=== PATIENT | male | born 1980 | race African-American/Black ===

== ENCOUNTER 2018-06-09 18:02 | Observation (INO) | payer MEDICAID ==
[~2018-06-09] VITALS: Ht 177.8 cm; Wt 96.9 kg
[2018-06-09 19:08] LABS: BASOPHILS # (AUTO) 0.06 x10^3/uL (0-0.1); BASOPHILS % (AUTO) 1 % (0-1); EOSINOPHILS # (AUTO) 0.13 x10^3/uL (0-0.4); EOSINOPHILS % (AUTO) 2 % (1-7); LYMPHOCYTES # (AUTO) 1.92 x10^3/uL (1-3.4); LYMPHOCYTES % (AUTO) 26 % (22-44); MD NO; MEAN CORPUSCULAR HEMOGLOBIN 29.9 pg (27.5-34.5); MEAN PLATELET VOLUME 9.1 fL (7.4-10.4); MONOCYTES # (AUTO) 0.52 x10^3/uL (0.2-0.8); MONOCYTES % (AUTO) 7 % (2-9); NEUTROPHILS # (AUTO) 4.65 x10^3/uL (1.8-6.8); NEUTROPHILS % (AUTO) 64 % (42-75); PLATELET COUNT 258 x10^3/uL (130-400); RED BLOOD COUNT 5.15 x10^6/uL (4.38-5.82); RED CELL DISTRIBUTION WIDTH 14.3 % (9.4-14.8)
[2018-06-09 19:11] LABS: ALANINE AMINOTRANSFERASE 36 U/L (12-78); ALBUMIN 4.3 g/dL (3.4-5.0); ANION GAP 7 mmol/L (5-15); CALCIUM 9.1 mg/dL (8.5-10.1); CHLORIDE 110 mmol/L (98-107); CREATININE 1.37 mg/dL (0.7-1.3)
[2018-06-09 19:12] LABS: SALICYLATE LEVEL < 1.7 mg/dL (2.8-20.0)
[2018-06-09 19:13] LABS: ALKALINE PHOSPHATASE 84 U/L (45-117); BILIRUBIN,TOTAL 0.7 mg/dL (0.2-1.0); TOTAL PROTEIN 8.7 g/dL (6.4-8.2)
[2018-06-09 19:14] LABS: ACETAMINOPHEN < 2 mcg/mL (10-30)
[2018-06-09 19:45] LABS: AMPHETAMINE SCREEN, URINE Positive (Negative); BARBITURATE SCREEN, URINE Negative (Negative); BENZODIAZEPINE SCREEN, URINE Negative (Negative); CANNABINOID SCREEN, URINE Positive (Negative); COCAINE SCREEN, URINE Negative (Negative); METHADONE SCREEN, URINE Negative (Negative); OPIATE SCREEN, URINE Negative (Negative)
[2018-06-09 19:46] LABS: MICROSCOPIC INDICATED
[2018-06-09 20:00] LABS: CULTURE INDICATED? YES
[2018-06-10] MEDS ORDERED: ONDANSETRON 2MG/ML, 2ML IVPush PRN (15:00)
[2018-06-10 15:36] VITALS: BP 120/79
[2018-06-10] MEDS ORDERED: BUPR-86 PO (15:57)
[2018-06-10] MEDS ORDERED: RISP2TAB3 PO (15:59)
[2018-06-10] MEDS ORDERED: GABA-827 PO (15:59)
[2018-06-10 16:19] LABS: FREE T4 (FREE THYROXINE) 1.48 ng/dL (0.76-1.46); THYROID STIMULATING HORMONE 1.23 mIU/L (0.358-3.740)
[2018-06-10] MEDS: NICOTINE 21 MG/24 HR PATCH.TD24 TD SCH (16:30)
[2018-06-10 19:31] VITALS: BP 121/77
[2018-06-11 06:42] LABS: ANION GAP 4 mmol/L (5-15); CALCIUM 8.6 mg/dL (8.5-10.1); CHLORIDE 107 mmol/L (98-107)
[2018-06-11 08:12] VITALS: BP 121/76
[2018-06-11] MEDS: NICOTINE 21 MG/24 HR PATCH.TD24 TD SCH (16:37)
[2018-06-11 19:19] VITALS: BP 128/77
[2018-06-12 07:58] VITALS: BP 128/72
== END 2018-06-12 11:40 ==
LOC: ED 20:47 → SUATTDRO 06-10 14:17 → EDIP 06-10 14:19 → 2N 06-10 15:29
PROVIDERS: ADMIT Internal Medicine; ATTEND Internal Medicine
DX: R45.851 Suicidal ideations (principal); F33.1 Major depressive disorder, recurrent, moderate; F22 Delusional disorders; F17.200 Nicotine dependence, unspecified, uncomplicated; F15.90 Other stimulant use, unspecified, uncomplicated; N17.0 Acute kidney failure with tubular necrosis; Z91.14 Patient's other noncompliance with medication regimen; Z91.5 Personal history of self-harm; Z79.899 Other long term (current) drug therapy
CPT/HCPCS: 36415; 80048; 80053; 80307; 80329; 81001; 84439; 84443; 85025; 87086; 99285; G0378; G0480

== ENCOUNTER 2018-07-04 18:12 | Emergency (ER) | payer MEDICAID ==
[~2018-07-04] VITALS: Ht 177.8 cm; Wt 101.6 kg
[~2018-07-04 18:12] MED LIST: BUPR-86 PO; GABA-827 PO; RISP2TAB3 PO
[2018-07-04 18:35] VITALS: BP 140/91
[2018-07-04] MEDS ORDERED: ONDANSETRON ODT 4 MG PO ONE (19:00)
== END 2018-07-04 19:39 | disposition home or self-care (01) ==
LOC: ED 19:33
DX: Z04.8 Encounter for examination and observation for other specified reasons (principal); F17.200 Nicotine dependence, unspecified, uncomplicated; F32.9 Major depressive disorder, single episode, unspecified
CPT/HCPCS: 99281

== ENCOUNTER 2018-08-08 02:09 | Observation (INO) | payer MEDICAID ==
[~2018-08-08] VITALS: Ht 177.8 cm; Wt 98.5 kg
[2018-08-08 02:40] LABS: BASOPHILS # (AUTO) 0.03 x10^3/uL (0-0.1); BASOPHILS % (AUTO) 0 % (0-1); EOSINOPHILS # (AUTO) 0.13 x10^3/uL (0-0.4); EOSINOPHILS % (AUTO) 1 % (1-7); LYMPHOCYTES # (AUTO) 1.56 x10^3/uL (1-3.4); LYMPHOCYTES % (AUTO) 15 % (22-44); MD NO; MEAN CORPUSCULAR HEMOGLOBIN 29.6 pg (27.5-34.5); MEAN CORPUSCULAR HGB CONC 33.9 g/dL (33.2-36.2); MEAN CORPUSCULAR VOLUME 87.3 fL (81-97); MEAN PLATELET VOLUME 8.9 fL (7.4-10.4); MONOCYTES # (AUTO) 0.48 x10^3/uL (0.2-0.8); MONOCYTES % (AUTO) 5 % (2-9); NEUTROPHILS # (AUTO) 8.23 x10^3/uL (1.8-6.8); NEUTROPHILS % (AUTO) 79 % (42-75); PLATELET COUNT 281 x10^3/uL (130-400); RED CELL DISTRIBUTION WIDTH 15.1 % (9.4-14.8)
[2018-08-08 02:51] LABS: ANION GAP 11 mmol/L (5-15); CALCIUM 8.8 mg/dL (8.5-10.1); CHLORIDE 104 mmol/L (98-107)
[2018-08-08 02:55] LABS: ALANINE AMINOTRANSFERASE 59 U/L (12-78); ALKALINE PHOSPHATASE 80 U/L (45-117); BILIRUBIN,TOTAL 0.6 mg/dL (0.2-1.0); CREATININE 1.23 mg/dL (0.7-1.3); TOTAL PROTEIN 8.3 g/dL (6.4-8.2)
[2018-08-08 02:58] LABS: ACETAMINOPHEN < 2 mcg/mL (10-30)
[2018-08-08 05:44] LABS: AMPHETAMINE SCREEN, URINE Positive (Negative); BARBITURATE SCREEN, URINE Negative (Negative); BENZODIAZEPINE SCREEN, URINE Negative (Negative); CANNABINOID SCREEN, URINE Positive (Negative); COCAINE SCREEN, URINE Negative (Negative); METHADONE SCREEN, URINE Negative (Negative); OPIATE SCREEN, URINE Negative (Negative)
[2018-08-08] MEDS ORDERED: BISACODYL 10 MG SUPP PR PRN (12:30)
[2018-08-08] MEDS ORDERED: POLYETHYLENE GLYCOL 17 GM PACKET PO PRN (12:30)
[2018-08-08] MEDS ORDERED: DOCUSATE 100 MG CAPSULE PO PRN (12:30)
[2018-08-08] MEDS ORDERED: ONDANSETRON ODT 4 MG PO PRN (12:30)
[2018-08-08] MEDS: INSULIN REGULAR 100 UNITS/ML, 3ML VIAL SQ-INSULIN SCH ×2 (13:30→20:34)
[2018-08-08] MEDS: GABAPENTIN 400 MG CAPSULE PO SCH ×2 (17:25→20:08)
[2018-08-08 19:55] VITALS: BP 114/77
[2018-08-08] MEDS: RISPERIDONE 2 MG TABLET PO SCH (20:08)
[2018-08-09] MEDS: INSULIN REGULAR 100 UNITS/ML, 3ML VIAL SQ-INSULIN SCH ×2 (07:00→11:00)
[2018-08-09 08:13] VITALS: BP 109/74
[2018-08-09] MEDS: GABAPENTIN 400 MG CAPSULE PO SCH ×3 (08:13→19:42)
[2018-08-09] MEDS: BUPROPION SR 150 MG TABLET PO SCH (08:13)
[2018-08-09] MEDS: LORazepam 1MG TABLET PO PRN (19:42)
[2018-08-09] MEDS: RISPERIDONE 2 MG TABLET PO SCH (19:42)
[2018-08-09 19:57] VITALS: BP 118/72
[2018-08-10 08:22] VITALS: BP_SYST 118
[2018-08-10] MEDS: BUPROPION SR 150 MG TABLET PO SCH (09:07)
[2018-08-10] MEDS: GABAPENTIN 400 MG CAPSULE PO SCH ×3 (09:07→20:20)
[2018-08-10 11:44] LABS: CHLORIDE 108 mmol/L (98-107)
[2018-08-10 11:45] LABS: ALBUMIN 3.1 g/dL (3.4-5.0); ANION GAP 5 mmol/L (5-15); CALCIUM 8.6 mg/dL (8.5-10.1)
[2018-08-10 11:46] LABS: CREATININE 0.89 mg/dL (0.7-1.3)
[2018-08-10 12:23] LABS: MEAN CORPUSCULAR HEMOGLOBIN 29.6 pg (27.5-34.5); MEAN CORPUSCULAR HGB CONC 33.5 g/dL (33.2-36.2); MEAN CORPUSCULAR VOLUME 88.3 fL (81-97); MEAN PLATELET VOLUME 8.8 fL (7.4-10.4); PLATELET COUNT 232 x10^3/uL (130-400); RED CELL DISTRIBUTION WIDTH 14.9 % (9.4-14.8)
[2018-08-10 12:25] LABS: BASOPHILS # (AUTO) 0.01 x10^3/uL (0-0.1); BASOPHILS % (AUTO) 0 % (0-1); EOSINOPHILS # (AUTO) 0.07 x10^3/uL (0-0.4); EOSINOPHILS % (AUTO) 2 % (1-7); LYMPHOCYTES # (AUTO) 0.86 x10^3/uL (1-3.4); LYMPHOCYTES % (AUTO) 22 % (22-44); MD SCAN; MONOCYTES # (AUTO) 0.35 x10^3/uL (0.2-0.8); MONOCYTES % (AUTO) 9 % (2-9); NEUTROPHILS # (AUTO) 2.55 x10^3/uL (1.8-6.8); NEUTROPHILS % (AUTO) 67 % (42-75)
[2018-08-10] MEDS: LORazepam 1MG TABLET PO PRN ×2 (15:40→20:21)
[2018-08-10] MEDS: ACETAMINOPHEN 325 MG TABLET PO PRN (17:37)
[2018-08-10 19:16] VITALS: BP 113/69
[2018-08-10] MEDS: RISPERIDONE 2 MG TABLET PO SCH (20:21)
[2018-08-11 08:40] VITALS: BP 122/64
[2018-08-11] MEDS: BUPROPION SR 150 MG TABLET PO SCH (09:03)
[2018-08-11] MEDS: GABAPENTIN 400 MG CAPSULE PO SCH ×3 (09:03→20:21)
[2018-08-11] MEDS: LORazepam 1MG TABLET PO PRN (18:23)
[2018-08-11 19:24] VITALS: BP 121/75
[2018-08-11] MEDS: RISPERIDONE 2 MG TABLET PO SCH (20:22)
[2018-08-12 07:30] VITALS: BP 107/72
[2018-08-12] MEDS: GABAPENTIN 400 MG CAPSULE PO SCH ×3 (08:43→20:22)
[2018-08-12] MEDS: BUPROPION SR 150 MG TABLET PO SCH (08:43)
[2018-08-12] MEDS: ACETAMINOPHEN 325 MG TABLET PO PRN (16:12)
[2018-08-12 19:10] VITALS: BP 123/78
[2018-08-12] MEDS: LORazepam 1MG TABLET PO PRN (19:28)
[2018-08-12] MEDS: RISPERIDONE 2 MG TABLET PO SCH (20:22)
[2018-08-13 08:16] VITALS: BP 106/76
[2018-08-13] MEDS: BUPROPION SR 150 MG TABLET PO SCH (09:11)
[2018-08-13] MEDS: GABAPENTIN 400 MG CAPSULE PO SCH ×3 (09:11→20:08)
[2018-08-13] MEDS: LORazepam 1MG TABLET PO PRN ×2 (15:48→20:08)
[2018-08-13] MEDS: ACETAMINOPHEN 325 MG TABLET PO PRN (15:49)
[2018-08-13 19:56] VITALS: BP 119/78
[2018-08-13] MEDS: RISPERIDONE 2 MG TABLET PO SCH (20:08)
[2018-08-14 07:54] VITALS: BP 108/69
[2018-08-14] MEDS: GABAPENTIN 400 MG CAPSULE PO SCH ×3 (07:59→20:44)
[2018-08-14] MEDS: BUPROPION SR 150 MG TABLET PO SCH (07:59)
[2018-08-14] MEDS: LORazepam 1MG TABLET PO PRN ×2 (07:59→13:04)
[2018-08-14 19:47] VITALS: BP 117/75
[2018-08-14] MEDS: RISPERIDONE 2 MG TABLET PO SCH (20:44)
[2018-08-15 07:38] VITALS: BP 101/66
[2018-08-15] MEDS: BUPROPION SR 150 MG TABLET PO SCH (09:16)
[2018-08-15] MEDS: GABAPENTIN 400 MG CAPSULE PO SCH ×3 (09:16→20:29)
[2018-08-15] MEDS: LORazepam 1MG TABLET PO PRN (18:38)
[2018-08-15 19:39] VITALS: BP 123/77
[2018-08-15] MEDS: RISPERIDONE 2 MG TABLET PO SCH (20:29)
[2018-08-16 08:13] VITALS: BP 112/72
[2018-08-16] MEDS: LORazepam 1MG TABLET PO PRN (08:55)
[2018-08-16] MEDS: GABAPENTIN 400 MG CAPSULE PO SCH ×3 (08:55→20:46)
[2018-08-16] MEDS: BUPROPION SR 150 MG TABLET PO SCH (08:55)
[2018-08-16 19:40] VITALS: BP 117/77
[2018-08-16] MEDS: RISPERIDONE 2 MG TABLET PO SCH (20:47)
[2018-08-17 07:55] VITALS: BP 107/74
[2018-08-17] MEDS: BUPROPION SR 150 MG TABLET PO SCH (08:48)
[2018-08-17] MEDS: GABAPENTIN 400 MG CAPSULE PO SCH (08:48)
== END 2018-08-17 10:50 | disposition home or self-care (01) ==
LOC: ED 03:00 → EDIP 10:39 → 2N 14:21
PROVIDERS: ADMIT Hospitalist; ATTEND Hospitalist
DX: R45.851 Suicidal ideations (principal); D72.829 Elevated white blood cell count, unspecified; R79.89 Other specified abnormal findings of blood chemistry; F31.9 Bipolar disorder, unspecified; F20.9 Schizophrenia, unspecified; F43.10 Post-traumatic stress disorder, unspecified; F12.90 Cannabis use, unspecified, uncomplicated; F17.210 Nicotine dependence, cigarettes, uncomplicated; Z91.5 Personal history of self-harm
CPT/HCPCS: 36415; 80048; 80053; 80307; 80329; 82040; 82962; 85025; 99285; G0378; J1815; G0480

== ENCOUNTER 2018-08-19 21:41 | Emergency (ER) | payer MEDICAID ==
[~2018-08-19] VITALS: Ht 172.7 cm; Wt 99.8 kg
[2018-08-19 22:01] VITALS: BP 130/75
[2018-08-19 22:30] LABS: BASOPHILS # (AUTO) 0.04 x10^3/uL (0-0.1); BASOPHILS % (AUTO) 0 % (0-1); EOSINOPHILS % (AUTO) 1 % (1-7); LYMPHOCYTES # (AUTO) 1.32 x10^3/uL (1-3.4); LYMPHOCYTES % (AUTO) 14 % (22-44); MD NO; MEAN CORPUSCULAR HEMOGLOBIN 29.2 pg (27.5-34.5); MEAN CORPUSCULAR HGB CONC 33.3 g/dL (33.2-36.2); MEAN CORPUSCULAR VOLUME 87.6 fL (81-97); MEAN PLATELET VOLUME 8.4 fL (7.4-10.4); MONOCYTES # (AUTO) 0.85 x10^3/uL (0.2-0.8); MONOCYTES % (AUTO) 9 % (2-9); NEUTROPHILS # (AUTO) 7.44 x10^3/uL (1.8-6.8); NEUTROPHILS % (AUTO) 76 % (42-75); PLATELET COUNT 255 x10^3/uL (130-400); RED BLOOD COUNT 4.91 x10^6/uL (4.38-5.82); RED CELL DISTRIBUTION WIDTH 15.2 % (9.4-14.8)
[2018-08-19 22:39] LABS: AMPHETAMINE SCREEN, URINE Positive (Negative); BARBITURATE SCREEN, URINE Negative (Negative); BENZODIAZEPINE SCREEN, URINE Negative (Negative); CANNABINOID SCREEN, URINE Positive (Negative); COCAINE SCREEN, URINE Negative (Negative); METHADONE SCREEN, URINE Negative (Negative); OPIATE SCREEN, URINE Negative (Negative)
[2018-08-19 22:42] LABS: ALANINE AMINOTRANSFERASE 58 U/L (12-78); ALBUMIN 3.9 g/dL (3.4-5.0); ANION GAP 11 mmol/L (5-15); CALCIUM 9.2 mg/dL (8.5-10.1); CHLORIDE 104 mmol/L (98-107); SALICYLATE LEVEL 2.4 mg/dL (2.8-20.0)
[2018-08-19 22:45] LABS: ACETAMINOPHEN < 2 mcg/mL (10-30); ALKALINE PHOSPHATASE 77 U/L (45-117); BILIRUBIN,TOTAL 0.8 mg/dL (0.2-1.0); CREATININE 1.22 mg/dL (0.7-1.3); TOTAL PROTEIN 8.4 g/dL (6.4-8.2)
== END 2018-08-19 23:34 | disposition home or self-care (01) ==
LOC: ED 23:28
DX: F32.1 Major depressive disorder, single episode, moderate (principal); F10.129 Alcohol abuse with intoxication, unspecified; F15.129 Other stimulant abuse with intoxication, unspecified; F20.9 Schizophrenia, unspecified
CPT/HCPCS: 36415; 80053; 80307; 80329; 85025; 99284; G0480

== ENCOUNTER 2018-10-17 08:25 | Observation (INO) | payer MEDICAID ==
[~2018-10-17] VITALS: Ht 177.8 cm; Wt 95.0 kg
[2018-10-17 09:55] LABS: ALANINE AMINOTRANSFERASE 33 U/L (12-78); ALBUMIN 3.1 g/dL (3.4-5.0); ANION GAP 7 mmol/L (5-15); CALCIUM 8.5 mg/dL (8.5-10.1); CHLORIDE 109 mmol/L (98-107); CREATININE 1.11 mg/dL (0.7-1.3)
[2018-10-17 09:57] LABS: ALKALINE PHOSPHATASE 75 U/L (45-117); BILIRUBIN,TOTAL 0.3 mg/dL (0.2-1.0); SALICYLATE LEVEL < 1.7 mg/dL (2.8-20.0); TOTAL PROTEIN 7.2 g/dL (6.4-8.2)
[2018-10-17 10:00] LABS: BASOPHILS % (AUTO) 0 % (0-1); EOSINOPHILS # (AUTO) 0.23 x10^3/uL (0-0.4); EOSINOPHILS % (AUTO) 4 % (1-7); LYMPHOCYTES # (AUTO) 0.87 x10^3/uL (1-3.4); LYMPHOCYTES % (AUTO) 14 % (22-44); MD NO; MEAN CORPUSCULAR HEMOGLOBIN 29.2 pg (27.5-34.5); MEAN CORPUSCULAR HGB CONC 33.2 g/dL (33.2-36.2); MEAN PLATELET VOLUME 9.2 fL (7.4-10.4); MONOCYTES # (AUTO) 0.23 x10^3/uL (0.2-0.8); MONOCYTES % (AUTO) 4 % (2-9); NEUTROPHILS # (AUTO) 4.68 x10^3/uL (1.8-6.8); NEUTROPHILS % (AUTO) 78 % (42-75); PLATELET COUNT 278 x10^3/uL (130-400); RED BLOOD COUNT 4.65 x10^6/uL (4.38-5.82); RED CELL DISTRIBUTION WIDTH 14.4 % (9.4-14.8)
[2018-10-17 10:01] LABS: ACETAMINOPHEN < 2 mcg/mL (10-30)
[2018-10-17 10:33] LABS: AMPHETAMINE SCREEN, URINE Positive (Negative); BARBITURATE SCREEN, URINE Negative (Negative); BENZODIAZEPINE SCREEN, URINE Negative (Negative); CANNABINOID SCREEN, URINE Positive (Negative); COCAINE SCREEN, URINE Negative (Negative); METHADONE SCREEN, URINE Negative (Negative); OPIATE SCREEN, URINE Negative (Negative)
[2018-10-17] MEDS ORDERED: ACETAMINOPHEN 325 MG TABLET PO PRN (17:00)
[2018-10-17] MEDS ORDERED: LORazepam 1MG TABLET PO PRN (17:00)
[2018-10-17] MEDS ORDERED: ONDANSETRON ODT 4 MG PO PRN (17:00)
[2018-10-17 17:25] VITALS: BP 129/59
[2018-10-17 18:00] VITALS: BP 129/59
== END 2018-10-17 18:30 ==
LOC: ED 09:52 → EDIP 15:41 → INTOOBSV 15:41 → 2N 17:23
PROVIDERS: ADMIT Internal Medicine; ATTEND Internal Medicine
DX: R45.851 Suicidal ideations (principal); F20.0 Paranoid schizophrenia; F31.9 Bipolar disorder, unspecified; F43.10 Post-traumatic stress disorder, unspecified; F17.200 Nicotine dependence, unspecified, uncomplicated; Z91.14 Patient's other noncompliance with medication regimen; Z91.5 Personal history of self-harm; Z59.0 Homelessness
CPT/HCPCS: 36415; 80053; 80307; 80329; 85025; 93005; 99284; G0378; G0480

== ENCOUNTER 2019-03-27 08:52 | Inpatient (IN) | payer MEDICAID, OTHER ==
[~2019-03-27] VITALS: Ht 177.8 cm; Wt 94.0 kg
--- NOTE | 2019-03-27 09:18 | NUR ---
PT PRESENTING FROM [facility]. PT STATES HE HAS THOUGHTS OF CUTTING HIS WRISTS AND THAT HE IS AGITATED WITH STRANGERS HE HAS BEEN IN CONTACT WITH AND HAS THOUGHTS OF HURTING THEM. PT IN ROOM CLEANING EVERYTHING WITH WET TOWELS. COOPERATIVE WHILE BELONGINGS SECURE. SITTING ON GURNEY WHILE PROVIDER SPEAKING WITH HIM, COOPERATIVE
[2019-03-27 10:14] LABS: MEAN CORPUSCULAR HEMOGLOBIN 29.8 pg (27.5-34.5); MEAN CORPUSCULAR HGB CONC 32.6 g/dL (33.2-36.2); MEAN CORPUSCULAR VOLUME 91.4 fL (81-97); MEAN PLATELET VOLUME 8.5 fL (7.4-10.4); PLATELET COUNT 237 x10^3/uL (130-400); RED BLOOD COUNT 4.27 x10^6/uL (4.38-5.82); RED CELL DISTRIBUTION WIDTH 14.5 % (9.4-14.8)
[2019-03-27 10:28] LABS: BASOPHILS % (AUTO) 0 % (0-1); EOSINOPHILS # (AUTO) 0.06 x10^3/uL (0-0.4); EOSINOPHILS % (AUTO) 1 % (1-7); LYMPHOCYTES # (AUTO) 0.76 x10^3/uL (1-3.4); LYMPHOCYTES % (AUTO) 14 % (22-44); MD SCAN; MONOCYTES # (AUTO) 0.36 x10^3/uL (0.2-0.8); MONOCYTES % (AUTO) 7 % (2-9); NEUTROPHILS # (AUTO) 4.09 x10^3/uL (1.8-6.8); NEUTROPHILS % (AUTO) 78 % (42-75)
[2019-03-27 10:35] LABS: CHLORIDE 110 mmol/L (98-107)
[2019-03-27 10:40] LABS: ALBUMIN 3.5 g/dL (3.4-5.0); ANION GAP 5 mmol/L (5-15); CALCIUM 8.7 mg/dL (8.5-10.1); CREATININE 1.02 mg/dL (0.7-1.3)
[2019-03-27 10:42] LABS: AMPHETAMINE SCREEN, URINE Positive (Negative); BARBITURATE SCREEN, URINE Negative (Negative); BENZODIAZEPINE SCREEN, URINE Negative (Negative); CANNABINOID SCREEN, URINE Positive (Negative); COCAINE SCREEN, URINE Negative (Negative); METHADONE SCREEN, URINE Negative (Negative); OPIATE SCREEN, URINE Negative (Negative)
--- NOTE | 2019-03-27 10:46 | NUR ---
MOVED PT FROM ROOM 30 TO ROOM 2. PT COOPERATIVE, DOES NOT WANT TO ENGAGE IN A CONVERSATION ANSWERS ONLY SHORT ANSWERS. STATES HAD A PLAN TO CUT HIS WRIST. TAKEN TO ROOM. PT CLEANED BED OVER AGAIN AND CLEANED FLOOR. PT DOES NOT REQUEST ANYTHING AT THIS TIME.
[2019-03-27 10:47] LABS: ACETAMINOPHEN < 2 mcg/mL (10-30)
--- NOTE | 2019-03-27 12:57 | NUR ---
MEAL GIVEN, PT RESTING COOPERATIVE
--- NOTE | 2019-03-27 13:12 | NUR ---
PACKET FAXED TO [facility]
--- NOTE | 2019-03-27 14:57 | NUR ---
REPORT TO JERSON SOLOMON
--- NOTE | 2019-03-27 15:05 | NUR ---
Report from RN, pt sleeping on gurney, bilateral chest rise noted, sitter remains at door wathching pt.
[2019-03-27] MEDS ORDERED: POTASSIUM CHLORIDE 20 MEQ TAB.ER.PRT PO SCH (16:30)
[2019-03-27] MEDS ORDERED: HALOPERIDOL 5 MG/ML IM PRN (16:30)
[2019-03-27] MEDS ORDERED: ACETAMINOPHEN 325 MG TABLET PO PRN (16:30)
[2019-03-27] MEDS ORDERED: DOCUSATE 100 MG CAPSULE PO PRN (16:30)
[2019-03-27] MEDS ORDERED: TRAZODONE 50MG TABLET PO PRN (16:30)
[2019-03-27] MEDS: NICOTINE 14MG/24 HR PATCH.TD24 TD SCH (16:30)
--- NOTE | 2019-03-27 16:31 | NUR ---
Pt placed on hospital bed, given water and juice per request. Pt calm, cooperative, polite. Denies needs/concerns, sitter remains at door.
[2019-03-27] MEDS ORDERED: NICOTINE 14MG/24 HR PATCH.TD24 ONE (17:34)
[2019-03-27] MEDS ORDERED: POTASSIUM CHLORIDE 20 MEQ TAB.ER.PRT ONE (17:35)
--- NOTE | 2019-03-27 17:57 | NUR ---
Pt agrees to med administration, pt states to RN "Im just going to assume I get fed here, and if I dont Im not going to ask for it im just going to request the video tapes of it all" Pt assured he is to recieve 3 meals a day and if he requires more food he is free to ask for snacks inbetween meals.
--- NOTE | 2019-03-27 18:08 | NUR ---
Nir wells in ED - 03/27/19 at 1809 by SAUD upon return from radiology, medicated for pain per orders. tech at bedside preparing to do an additional ultrasound
--- NOTE | 2019-03-27 18:30 | NUR ---
Pt given meal tray, pt states "So am I always going to get a sandwich because my neighbors are getting hot food" Attempted to get pt pizza from coffee cart, no pizza available, they are making some, pt aware, pt states he will wait for pizza.
--- NOTE | 2019-03-27 19:39 | NUR ---
Pt given 2 pieces of pizza, thankful for food, calm, cooperative. Short with RN, but polite. Sitter remains at door watching pt
--- NOTE | 2019-03-27 22:57 | NUR ---
Pt remains asleep on hosptial bed, chest rise noted, sitter at door
--- NOTE | 2019-03-28 00:08 | NUR ---
REPORT TO ANTONINA FOR [facility]
[2019-03-28 08:10] VITALS: BP 125/79
[2019-03-28] MEDS ORDERED: POTASSIUM CHLORIDE 20 MEQ TAB.ER.PRT PO SCH (10:00)
[2019-03-28] MEDS: NICOTINE 14MG/24 HR PATCH.TD24 TD SCH (16:30)
[2019-03-28 19:31] VITALS: BP 118/72
[2019-03-29 08:12] VITALS: BP 117/79
[2019-03-29] MEDS: NICOTINE 14MG/24 HR PATCH.TD24 TD SCH (16:30)
[2019-03-29 19:22] VITALS: BP 124/73
[2019-03-29] MEDS: CETIRIZINE 10 MG TABLET PO PRN (20:50)
[2019-03-30 08:18] VITALS: BP 118/81
[2019-03-30] MEDS: BUPROPION SR 150 MG TABLET PO SCH (11:57)
[2019-03-30] MEDS ORDERED: BUPROPION 75 MG TABLET PO SCH (12:00)
[2019-03-30] MEDS: NICOTINE 14MG/24 HR PATCH.TD24 TD SCH (15:39)
[2019-03-30] MEDS: CETIRIZINE 10 MG TABLET PO PRN (19:18)
[2019-03-30 19:37] VITALS: BP 111/70
[2019-03-31] MEDS: BUPROPION SR 150 MG TABLET PO SCH (07:58)
[2019-03-31] MEDS: CETIRIZINE 10 MG TABLET PO PRN (15:22)
[2019-03-31] MEDS: NICOTINE 14MG/24 HR PATCH.TD24 TD SCH (16:13)
[2019-03-31 19:27] VITALS: BP 114/72
[2019-03-31] MEDS: IBUPROFEN 600 MG TABLET PO PRN (19:27)
[2019-04-01] MEDS: BUPROPION SR 150 MG TABLET PO SCH (08:07)
[2019-04-01 08:43] VITALS: BP 103/67
[2019-04-01] MEDS: NICOTINE 14MG/24 HR PATCH.TD24 TD SCH (16:30)
[2019-04-01 19:18] VITALS: BP 119/76
[2019-04-01] MEDS: IBUPROFEN 600 MG TABLET PO PRN (20:15)
[2019-04-01] MEDS: CETIRIZINE 10 MG TABLET PO PRN (20:15)
[2019-04-02 07:51] VITALS: BP 119/82
[2019-04-02] MEDS: BUPROPION SR 150 MG TABLET PO SCH (08:03)
[2019-04-02] MEDS: HALOPERIDOL 5 MG TABLET PO PRN (12:22)
[2019-04-02] MEDS: NICOTINE 14MG/24 HR PATCH.TD24 TD SCH (16:30)
[2019-04-02] MEDS: QUETIAPINE 25MG TABLET PO PRN (19:20)
[2019-04-02 19:38] VITALS: BP 109/71
[2019-04-02] MEDS: QUETIAPINE 100MG TABLET PO SCH (19:50)
[2019-04-03 07:11] VITALS: BP 102/65
[2019-04-03] MEDS: BUPROPION SR 150 MG TABLET PO SCH (08:04)
[2019-04-03] MEDS: QUETIAPINE 25MG TABLET PO PRN ×2 (13:34→20:16)
[2019-04-03] MEDS: HALOPERIDOL 5 MG TABLET PO PRN (13:34)
[2019-04-03] MEDS: NICOTINE 14MG/24 HR PATCH.TD24 TD SCH (15:58)
[2019-04-03 19:08] VITALS: BP 116/69
[2019-04-03] MEDS: QUETIAPINE 100MG TABLET PO SCH (20:16)
[2019-04-04 08:05] VITALS: BP 99/62
[2019-04-04] MEDS: BUPROPION SR 150 MG TABLET PO SCH (08:15)
== END 2019-04-04 10:47 | disposition left against medical advice (07) | DRG 885 ==
LOC: ED 10:29 → EDIP 12:41 → INTOOBSV 12:41 → 2N 03-28 00:17 → OBSVTOIN 03-28 09:24 → 2N 04-04 09:50
PROVIDERS: ADMIT Internal Medicine; ATTEND Internal Medicine
DX: F33.2 Major depressive disorder, recurrent severe without psychotic features (principal); F17.210 Nicotine dependence, cigarettes, uncomplicated; F20.9 Schizophrenia, unspecified; E87.6 Hypokalemia; F15.10 Other stimulant abuse, uncomplicated; F12.10 Cannabis abuse, uncomplicated; Z91.5 Personal history of self-harm; Z59.0 Homelessness
CPT/HCPCS: 36415; 80048; 80307; 82040; 85025; 99285; G0378

== ENCOUNTER 2019-04-06 03:19 | Emergency (ER) | payer MEDICAID ==
[~2019-04-06] VITALS: Ht 177.8 cm; Wt 93.2 kg
[2019-04-06 03:23] VITALS: BP 136/66
--- NOTE | 2019-04-06 03:28 | NUR ---
PT PRESENTED WITH C/O L HIP PAIN ALL DAY FROM WALKING A LOT. NO INJURY/TRAUMA. MONITORS APPLIED, SIDERAILS UP X2, CALL LIGHT WITHIN REACH. AWAITING ERP FOR EVAL AND ORDERS
[2019-04-06] MEDS ORDERED: IBUPROFEN 600 MG TABLET ONE (03:33)
--- NOTE | 2019-04-06 03:35 | NUR ---
PT MEDICATED PER MAR
--- NOTE | 2019-04-06 03:57 | NUR ---
pt resting on gurney, stated pain "it's a little better". monitors in place, call light within reach
[2019-04-06] MEDS ORDERED: IBUPROFEN 600 MG TABLET PO ONE (04:00)
== END 2019-04-06 04:06 | disposition home or self-care (01) ==
LOC: ED 03:45
DX: M25.552 Pain in left hip (principal); M79.652 Pain in left thigh; F17.200 Nicotine dependence, unspecified, uncomplicated
CPT/HCPCS: 99283